=== PATIENT | male | born 1985 | race Caucasian/White ===

== ENCOUNTER 2019-11-06 09:45 | Outpatient (CLI) | payer OTHER, MEDICAID, SELFPAY ==
--- NOTE | ~2019-11-06 | MR_ITS ---
EXAMINATION: MR brain/brain stem wo con DATE: 11/06/2019 11:18 INDICATION: Meningioma. Headache. TECHNIQUE: Magnetic resonance imaging (MRI) of the brain and brainstem was performed without intraven ous contrast. Sequences included sagittal and axial T1-weighted FSE, axial diffusion-weighted FS EPI, axial T2*-weighted GRE, axial T2-weighted FLAIR Propeller, and axial T2-weighted Propeller. Apparent diffusion coefficient (ADC) maps were created. COMPARISON: Head CT 02/15/2019 FINDINGS: There are changes of left frontal lobe mass resection. There is increased T2-weighted signa l intensity at the resection margins, consistent with encephalomalacia. There are foci of increased T 2-weighted signal intensity in the right cerebral white matter, which is within normal limits for the patient's age. There is no intracranial hemorrhage, acute infarction, or abnormal intracranial mass lesion. The ventricles are normal in size. There is mild mucosal thickening in the sphenoid sinus. Th e mastoid air cells are normal. IMPRESSION: 1. Changes of left frontal lobe mass resection. No evidence of recurrent or residual neoplasm. Reviewed, dictated and finalized at location A. IMPRESSION: 1. Changes of left frontal lobe mass resection. No evidence of recurrent or res idual neoplasm.
== END 2019-11-06 09:46 | disposition home or self-care (01) ==
PROVIDERS: PCP Family Medicine; Visit Provider Family Medicine
DX: D32.9 Benign neoplasm of meninges, unspecified (principal); R93.0 Abnormal findings on diagnostic imaging of skull and head, not elsewhere classified
CPT/HCPCS: 70551

== ENCOUNTER → 2020-12-14 11:29 | Outpatient (CLI) | payer OTHER, MEDICAID, SELFPAY ==
--- NOTE | ~2020-12-14 | XR_ITS ---
EXAMINATION: XR chest 2V DATE: 12/14/2020 11:40 INDICATION: Cough, positive TB test TECHNIQUE: PA and lateral views of the chest are obtained. COMPARISON: 03/24/2010 FINDINGS: The lungs are free of acute opacities. There is no pleural effusion or pneumothorax. The ca rdiomediastinal silhouette is normal. The visualized bones and soft tissues are unremarkable. IMPRESSION: 1. No acute cardiopulmonary abnormality. Reviewed, dictated and finalized at location A.
== END ==
PROVIDERS: PCP Family Medicine; Visit Provider Nurse Practitioner
DX: Z11.1 Encounter for screening for respiratory tuberculosis (principal); R05 Cough
CPT/HCPCS: 71046

== ENCOUNTER 2022-01-21 16:07 | Outpatient (CLI) | payer OTHER, MEDICAID, SELFPAY ==
--- NOTE | ~2022-01-21 | CT_ITS ---
EXAMINATION: CT brain wo con DATE: 01/21/2022 16:26 INDICATION: Headache. History of malignant neoplasm. TECHNIQUE: Computed tomography (CT) of the head was performed without intravenous contrast. The mA wa s adjusted according to patient size. Iterative reconstruction technique was employed. Exam dose: 60 5.33 mGy-cm total exam DLP. COMPARISON: 11/06/2019 MRI brain/brainstem 02/15/2019 CT brain FINDINGS: Status post right and left frontal craniotomy with bone flaps secured by plates and screws. Status post left frontal surgical resection with corresponding postoperative left frontal encephalom alacia. No current intracranial mass lesion is evident on this limited noncontrast examination. No midline sh ift or mass effect. No subarachnoid, parenchymal, intraventricular or subarachnoid hemorrhage. Normal ventricular size. Normal dyson-white matter differentiation. No subdural or epidural hematoma. Included paranasal sinuses and mastoid air cells are normally developed and aerated. No skull fracture or bone destruction is detected. IMPRESSION: Status post left frontal craniotomy for left frontal mass resection with postoperative l eft frontal encephalomalacia; no apparent recurrent mass or mass effect effect is noted on this limit ed noncontrast examination Reviewed, dictated and finalized at [facility]. Reviewed, dictated and finalized at location A. IMPRESSION: Status post left frontal craniotomy for left frontal mass resectio n with postoperative left frontal encephalomalacia; no apparent recurrent mass or mass effect effect is noted on this limited noncontrast examination
== END 2022-01-21 16:08 | disposition home or self-care (01) ==
PROVIDERS: PCP Family Medicine; Visit Provider Nurse Practitioner Adult Health
DX: Z85.9 Personal history of malignant neoplasm, unspecified (principal)
CPT/HCPCS: 70450

== ENCOUNTER 2022-10-05 10:38 | Emergency (ER) | payer OTHER, MEDICAID, SELFPAY ==
[2022-10-05 10:46] VITALS: BP 143/83; PULSE 74; RESP 16; TEMP 37.1; O2SAT 99
--- NOTE | 2022-10-05 10:51 | ED.URI ---
HPI - URI/Sore Throat General Chief Complaint: Upper Respiratory Infection Stated Complaint: Sinus Time Seen by Provider: 10/05/22 10:48 Source: patient Mode of arrival: ambulatory Limitations: no limitations History of Present Illness HPI Narrative: Felipe is a 37-year-old male patient presenting to the clinic today with complaints of sinus congestion, fatigue, fever, headache, body aches, sore throat, chills, and cough times 1 day. He reports that he had little tickle in his throat 2 days ago however his symptoms got worse yesterday. He did at home COVID test last night was positive. He is here today because his work is wanting confirmation. He denies any shortness of breath or chest pain. MD elicited complaint: fever, cough, sore throat, rhinorrhea, nasal congestion and other (Headache, weakness) Related Data Allergies Allergy/AdvReac Type Severity Reaction Status Date / Time No Known Allergies Allergy Verified 10/05/22 10:48 Review of Systems Review of Systems: Pertinent positives per HPI. Patient denies any fever, chills, rash, headache, visual changes, dizziness, cough, shortness of breath, chest pain, palpitations, nausea, vomiting, diarrhea, constipation, abdominal pain, or any urinary issues. PMFSH Comments At the time of my signature, I reviewed and agree with the nursing past medical, surgical, social, and family history. There is no relevant family history pertinent to the patient complaint. Exam Narrative: General: Well-developed, well nourished, in no apparent distress Head: Normocephalic, atraumatic Eyes: Pupils equally round and reactive to light bilaterally, EOM intact, sclera and conjunctive clear, no discharge, lids normal Ears: TMs intact and clear, ear canals clear, no drainage, grossly hearing normal. Nose: Nares patent, no discharge, no inflammation, no sinus tenderness. Mouth: Oral pharynx without lesions or masses, good dentition, MMM. Neck: Supple, trachea midline, no enlargement of anterior or posterior cervical nodes, no thyroid masses or goiter palpable. Cardio: Regular rate and rhythm, s1 and s2 normal, no murmur appreciated. Resp: Clear to auscultation bilaterally, no rhonchi, rales, wheezing or rubs Course Course Emergency Course: Portions of this record may have been created with voice recognition software. Level of Care: Express Care Visit Vital Signs Vital signs: Vital Signs Temperature 37.1 C 10/05/22 10:46 Pulse Rate 74 10/05/22 10:46 Respiratory Rate 16 10/05/22 10:46 Blood Pressure 143/83 H 10/05/22 10:46 Pulse Oximetry 99 10/05/22 10:46 Oxygen Delivery Room Air 10/05/22 10:46 Temperature 37.1 C 10/05/22 10:46 Pulse Rate 74 10/05/22 10:46 Respiratory Rate 16 10/05/22 10:46 Blood Pressure 143/83 H 10/05/22 10:46 Pulse Oximetry 99 10/05/22 10:46 Oxygen Delivery Room Air 10/05/22 10:46 Vital signs reviewed MDM - URI/Sore Throat MDM Narrative Medical decision making narrative: At the time of visit patient is resting comfortably on the exam table. Strep test was negative in the clinic today. COVID test was positive in the clinic today. Supportive measures were discussed with the patient he voiced understanding discharge instructions and agrees to treatment plan. Differential Diagnosis Differential diagnosis: Likely upper respiratory infection, otitis media, sinusitis, viral infection, bronchitis, influenza, pharyngitis and other (COVID) Discharge Plan Discharge Clinical Impression: COVID-19 Patient Disposition: Home, Self-Care Condition: Stable Instructions: Antibiotic Form, COVID-19 (Coronavirus Disease 2019) (ED), How to Recover from COVID-19 at Home (ED) Additional Instructions: COVID test was positive in the clinic today Strep test was negative in the clinic today May take DayQuil/NyQuil for cold/flu symptoms Increase fluids and stay well hydrated Tylenol/motrin for pain/fever Flonase and OTC an
== END 2022-10-05 11:18 | disposition home or self-care (01) ==
PROVIDERS: Emergency Provider Nurse Practitioner Family; PCP Family Medicine
DX: U07.1 COVID-19 (principal)
CPT/HCPCS: 87081; 87426; 87880; 99213; C9803; G0463

== ENCOUNTER 2024-11-27 11:20 | Outpatient (CLI) | payer OTHER, SELFPAY ==
--- NOTE | ~2024-11-27 | XR_ITS ---
EXAMINATION: XR chest 2V 11/27/2024 11:40 INDICATION: Annual TB screening PROCEDURE: 2 view chest COMPARISON: Comparison to multiple prior studies sequentially, with oldest reviewed study dated 07/2019. FINDINGS: The lungs are clear. The cardiomediastinal silhouette is within normal limits. There are no pleural effusions. There is no pneumothorax suspected. There is mild loss of vertebral body heig ht at least 2 midthoracic vertebra, which appears chronic. IMPRESSION: 1: NO ACUTE CARDIOPULMONARY DISEASE. Reviewed, dictated and finalized at location A.
== END 2024-11-27 11:21 | disposition home or self-care (01) ==
PROVIDERS: PCP Family Medicine
DX: F11.20 Opioid dependence, uncomplicated (principal)
CPT/HCPCS: 71046